=== PATIENT | female | born 1975 | race American Indian/Alaskan Native ===

== ENCOUNTER 2018-03-09 10:41 | Day surgery (SDC) | payer MEDICAID ==
[~2018-03-09 10:41] MED LIST: LACTATED RINGERS 1,000 ML IV SCH; VERSED IV NR
--- NOTE | 2018-03-09 11:14 | Short Stay Summary ---
Short Stay Documentation Date of service: 03/09/18 Narrative H&P: Pt is a 43yo BF LMP 02/12/18 presents for surgical evaluation and treatment of extensive vaginal, perineal and rectal condylomas. She is therefore schedule for a Laser ablation of extensive vaginal, perineal and rectal condylomas. - History Principal diagnosis: Extensive vaginal/perineal condyloma H&P: obtained from office Past Medical History: hypertension Past Surgical History: Social history: no significant social history, single - Allergies and Medications Current Medications: Allergies No Known Allergies Allergy (Unverified 03/05/18 16:31) Home Medications Medication Instructions Recorded Confirmed Last Taken Type No Known Home Medications [No 03/05/18 03/05/18 Unknown History Reported Home Medications] Active Medications Lactated Ringer's (Lactated Ringers) 1,000 mls @ 100 mls/hr IV DIRECT MAJOR Midazolam HCl (Versed) 2 mg IV PREOP NR Stop: 03/09/18 23:59 - Physical exam General appearance: no acute distress Integumentary: no rash HEENT: Atraumatic Lungs: Clear to auscultation Breasts: deferred Heart: Regular rate Gastrointestinal: normal Female Genitourinary: lesions Rectal Exam: deferred Extremities: no ischemia Neurological: Normal gait, Normal speech - Brief post op/procedure progress note Date of procedure: 03/09/18 Pre-op diagnosis: Extensive vaginal perineal and rectal condylomas Post-op diagnosis: same Procedure: Laser ablation of extensive vaginal, perineal and rectal condylomas Anesthesia: MAC Findings: Extensive large condylomas from the vagina, perineum and rectum Surgeon: OLAF CHAMBERLAIN Estimated blood loss: other (400ml) Pathology: list (condylomas) Specimen disposition: to lab Condition: stable - Hospital course Hospital course: Unremarkable. - Disposition Condition at discharge: Good Disposition: [id number] TO HOME OR SELFCARE - Discharge Diagnoses (1) Condylomata acuminata Status: Resolved Short Stay Discharge Plan Activity: no restrictions Diet: regular Wound: open to air, keep clean and dry Follow up with: LLUVIA CONTE [Other] - 7 Days OLAF CHAMBERLAIN MD [Staff Physician] - 7 Days Prescriptions: HYDROcodone/APAP 5-325 [[place] 5/325] 1 each PO Q6HR PRN #30 tablet PRN Reason: Pain Lidocaine Topical 5% [Xylocaine Topical 5%] 35.44 gm TP 4XD #1 tube Silver Sulfadiazine [Silvadene] 50 gm TP 4XD #1 cream..g.
[2018-03-09] MEDS ORDERED: XYLOCAINE 2% UROJET ONE (11:38)
[2018-03-09] MEDS ORDERED: MONSEL'S TP ONE ×2 (11:39→13:50)
[2018-03-09] MEDS ORDERED: THERMAZENE 50 GRAM TP ONE ×2 (11:39→14:00)
[2018-03-09] MEDS ORDERED: LUGOL'S SOLUTION 5% TP ONE (11:39)
[2018-03-09] MEDS ORDERED: ACETIC ACID 3% SOLN TP ONE (11:40)
[2018-03-09] MEDS ORDERED: LIDOCAINE 1.5%/EPI 1:200,000 INFILTRATI ONE (11:40)
[2018-03-09] MEDS ORDERED: DIPRIVAN 10 MG/ML IV ONE ×4 (11:43→13:33)
[2018-03-09] MEDS ORDERED: DILAUDID ONE ×2 (11:43→13:25)
[2018-03-09] MEDS ORDERED: XYLOCAINE MPF 2% ONE (11:43)
[2018-03-09] MEDS ORDERED: ANCEF/STERILE WATER 2 GM/20 ML 2 GM/20 ML SYRINGE IV NR (12:00)
--- NOTE | 2018-03-09 12:16 | Anesthesia Consultation ---
Anesthesia Consult and Med Hx Date of service: 03/09/18 - Airway Anesthetic Teeth Evaluation: Poor (some teeth on bottom, many missing) ROM Head & Neck: Adequate Mental/Hyoid Distance: Adequate Mallampati Class: Class II Intubation Access Assessment: Probably Good - Pulmonary Exam CTA: Yes - Cardiac Exam Cardiac Exam: RRR - Pre-Operative Health Status ASA Pre-Surgery Classification: ASA2 Proposed Anesthetic Plan: General (patient has never had anesthesia and is unaware of any family member having anesthesia) - Pulmonary Hx Smoking: Yes (1/ ppd) - Central Nervous System Hx Psychiatric Problems: No - Other Systems Hx Alcohol Use: Yes (occas) Hx Cancer: No Hx Obesity: Yes
--- NOTE | 2018-03-09 12:17 | Anesthesia Day of Surgery ---
Anesthesia Day of Surgery - Day of Surgery Patient Examined: Yes Patient H&P Reviewed: Yes Patient is NPO: Yes
[2018-03-09 12:20] LABS: Basophils # (Auto) 0.1 K/mm3 (0.0-0.1); Basophils % (Auto) 1.3 % (0.0-1.8); Eosinophils # (Auto) 0.6 K/mm3 (0.0-0.4); Eosinophils % (Auto) 12.5 % (0.0-4.3); Hematocrit 32.1 % (30.3-42.9); Hemoglobin 10.1 gm/dl (10.1-14.3); Lymphocytes # (Auto) 1.2 K/mm3 (1.2-5.4); Lymphocytes % (Auto) 24.8 % (13.4-35.0); Mean Corpuscular HGB Conc 32 % (30-34); Mean Corpuscular Hemoglobin 27 pg (28-32); Mean Corpuscular Volume 86 fl (79-97); Monocytes # (Auto) 0.4 K/mm3 (0.0-0.8); Platelet Count 254 K/mm3 (140-440); Red Blood Count 3.75 M/mm3 (3.65-5.03); Red Cell Distribution Width 16.6 % (13.2-15.2)
[2018-03-09] MEDS ORDERED: ZOFRAN ONE (13:14)
[2018-03-09] MEDS ORDERED: LACTATED RINGERS 1,000 ML ONE (13:48)
[2018-03-09] MEDS ORDERED: WATER FOR IRRIG STERILE IR ONE (13:50)
[2018-03-09] MEDS ORDERED: XYLOCAINE 2% UROJET UR ONE (14:00)
[2018-03-09] MEDS ORDERED: S2 RACEPINEPHRINE 2.25% IH ONE (14:32)
--- NOTE | 2018-03-09 14:43 | Post Anesthesia Evaluation ---
- Post Anesthesia Evaluation Patient Participated: Yes Airway Patent: Yes Stable Respiratory Function: Yes Nausea/Vomiting: No Temp > 96.8F: Yes Pain Manageable: Yes Adequeate Hydration: Yes Anesthesia Complications: No
[2018-03-09 16:01] LABS: Hematocrit 29.1 % (30.3-42.9); Hemoglobin 9.1 gm/dl (10.1-14.3)
[2018-03-09 16:15] VITALS: BP 137/84
--- NOTE | 2018-03-09 18:25 | Operative Report ---
Operative Report Operative Report: Date of procedure: 03/09/2018 Pre-operative diagnosis: Extensive vaginal perineal and rectal condylomas Post-operative diagnosis: Same Procedure name(s): Laser ablation of extensive vaginal perineal and rectal condylomas Surgeon: Derian Black MD Lead Blender: None Anesthesia: Gen. Mask EBL: 400 mL's Findings: Extensive large condylomas from the vagina the perineum and the rectum Procedure: After the patient was correctly identified, she was draped using wet laps and the bladder was first emptied using a straight catheter. A #15 blade was used to excise the large condylomas which was then sent to pathology. The laser was set at 10 W continuous, and after first testing, it was used to ablate the condylomas of the vagina the perineum and the rectum. The entire procedure took approximately 90 minutes to ablate all of the condylomas. After all of the condylomas were ablated the procedure was considered complete. All instruments removed from the vagina. A mixture of SILVADENE cream and viscous lidocaine was applied to the perineum vagina and rectum. The patient tolerated the procedure well and was transferred to recovery in stable condition. A repeat H&H was performed in the recovery room, and it was stable at 9.1 and 29.1
== END 2018-03-09 10:42 | disposition home or self-care (01) ==
LOC: OR 10:41
PROVIDERS: ATTEND Obstetrics & Gynecology
DX: A63.0 Anogenital (venereal) warts (principal); N89.4 Leukoplakia of vagina; I10 Essential (primary) hypertension; E66.9 Obesity, unspecified; F17.210 Nicotine dependence, cigarettes, uncomplicated; Z98.890 Other specified postprocedural states; Z68.39 Body mass index [BMI] 39.0-39.9, adult
CPT/HCPCS: 17110; 36415; 56515; 81025; 84703; 85014; 85018; 85025; 88305; J0690; J1170; J2250; J2405; J2704; J7120